=== PATIENT | male | born 1980 | race Caucasian/White ===

== ENCOUNTER 2017-07-21 17:43 | Inpatient (IN) | payer MEDICARE, MEDICAID ==
[2017-07-21 18:38] LABS: Amphetamine Screen,Urine Not Detected (NotDetected); Barbiturate Screen,Urine Not Detected (NotDetected); Benzodiazepines Screen,Urine Detected (NotDetected); Cocaine Screen,Urine Not Detected (NotDetected); Methadone Screen, Urine Not Detected (NotDetected); Opiate Screen,Urine Detected (NotDetected); Oxycodone Screen, Urine Not Detected (NotDetected); Phencyclidine Screen,Urine Not Detected (NotDetected); Tricyclic Antidepressant,Urine Not Detected (NotDetected); Urn Cannabinoid Scrn Detected (NotDetected)
--- NOTE | 2017-07-21 22:33 | ED ---
Psych HPI - General Chief Complaint: Psychiatric Symptoms Stated Complaint: MENTAL HEALTH Time Seen by Provider: 07/21/17 18:05 Source: patient, police Mode of arrival: ambulatory - History of Present Illness Initial Comments: This 37-year-old white male presents with a complaint of depression. He states that he feels as though his depression is related to his chronic pain syndrome and not receiving enough narcotics. He has had some suicidal ideations but does not feel as though he will actually go through with it. He denies any actual plan. He states that he has chronic neck pain and is had 2 neck surgeries. He states that he takes [place] but it is like taking Tylenol or Motrin and does not work for him. He states that he has tried to take some of his amphetamine medication for pain but it does not work for his pain. He denies any other complaints or modifying factors. He states that his symptoms are fairly severe and have some degree of chronicity. - Related Data Home Medications Medication Instructions Recorded Confirmed Dextroamphetamine/Amphetamine 20 mg PO QAM 05/15/16 07/21/17 [Adderall Xr] Dextroamphetamine/Amphetamine 30 mg PO BID 05/15/16 07/21/17 [Adderall] Diazepam [Valium] 10 mg PO BID PRN 05/15/16 07/21/17 Fluticasone Propionate [Flonase 1 spray EA NOSTRIL DAILY 05/15/16 07/21/17 Allergy Relief] HYDROcodone/APAP 10-325MG [[place] 1 tab PO TID PRN 05/15/16 07/21/17 10-325] Ibuprofen [Motrin] 800 mg PO TID PRN 05/15/16 07/21/17 Omeprazole 20 mg PO BID 05/15/16 07/21/17 Sildenafil Citrate [Sildenafil] 20 mg PO DAILY PRN 05/15/16 07/21/17 Albuterol Inhaler [Ventolin Hfa 2 puff INHALATION RT-Q6H PRN 07/21/17 07/21/17 Inhaler] Megestrol [Megace] 200 mg PO BID 07/21/17 07/21/17 Montelukast [Singulair] 10 mg PO DAILY 07/21/17 07/21/17 Ultram Unknown Dose 1 tab PO ONCE PRN 07/21/17 07/21/17 Allergies Allergy/AdvReac Type Severity Reaction Status Date / Time Iodinated Contrast- Oral and Allergy Unknown Verified 07/21/17 22:27 IV Dye [Iodinated Contrast Media - Oral and] Review of Systems ROS Statement: Those systems with pertinent positive or pertinent negative responses have been documented in the HPI. ROS Other: All systems not noted in ROS Statement are negative. Past Medical History Past Medical History: Asthma Additional Past Medical History / Comment(s): DDD ADD anxiety Asthma History of Any Multi-Drug Resistant Organisms: None Reported Additional Past Surgical History / Comment(s): neck, [facility] unit Past Psychological History: ADD/ADHD, Anxiety Smoking Status: Current every day smoker Past Alcohol Use History: Occasional Past Drug Use History: None Reported General Exam - General Exam Comments Initial Comments: GENERAL: The patient is well nourished and well hydrated. VITAL SIGNS: Heart rate, blood pressure, respiratory rate reviewed as recorded in nurse's notes. EYES: Pupils are round and reactive. Extraocular movements are intact. No conjunctival / lid redness or swelling. ENT: No external evidence of injury, swelling, or ecchymosis. Airway is patent. Throat is clear. NECK: Nontender. No swelling or evidence of injury. No subcutaneous emphysema. Trachea is midline. No thyroid mass. HEART: Regular rate and rhythm. Good peripheral pulses. LUNGS/CHEST: Breath sounds clear and equal bilaterally. No rales, rhonchi, or wheezes. No ecchymosis, subcutaneous emphysema, or tenderness. ABDOMEN: Abdomen soft without tenderness. No palpable masses or organomegaly. No peritoneal signs. No abdominal wall swelling or ecchymosis. EXTREMITIES: No extremity tenderness. Normal muscle tone and function. No thoracolumbar tenderness. NEUROLOGIC: Sensation is grossly intact. Cranial nerve exam reveals face is symmetrical, tongue is midline, speech is clear. SKIN: No abrasions or ecchymosis is noted. No induration or masses noted. PSYCHIATRIC: Alert and oriented. Appropriate behavior and judgment. Limitations: no limitations Course Vital Signs 07/21/17 17:47 Temperature 97.4 F L Pulse Rate 78 Respiratory 18 Rate Blood Pressure 158/87 O2 Sat by Pulse 100 Oximetry Medical Decision Making - Medical Decision Making The patient was seen and examined. All diagnostics were reviewed. His breath alcohol test is negative. Psychiatric did evaluate the patient and would like to admit him to the hospital. The patient voluntarily is admitted to the hospital for further psychiatric treatment. - Lab Data Lab Results 07/21/17 Range/Units 18:15 Urine Opiates Screen Detected H (NotDetected) Ur Oxycodone Screen Not Detected (NotDetected) Urine Methadone Screen Not Detected (NotDetected) Ur Propoxyphene Screen Not Detected (NotDetected) Ur Barbiturates Screen Not Detected (NotDetected) U Tricyclic Antidepress Not Detected (NotDetected) Ur Phencyclidine Scrn Not Detected (NotDetected) Ur Amphetamines Screen Not Detected (NotDetected) U Methamphetamines Scrn Not Detected (NotDetected) U Benzodiazepines Scrn Detected H (NotDetected) Urine Cocaine Screen Not Detected (NotDetected) U Marijuana (THC) Screen Detected H (NotDetected) Disposition Clinical Impression: Major depression, Chronic pain, Hypertension Disposition: ADMITTED IP TO THIS [facility] Condition: Fair Time of Disposition: 22:33 Decision Date: 07/21/17 Decision Time: 22:33
[2017-07-22] MEDS ORDERED: MAGNESIUM HYDROXIDE 2,400 MG/10 ML CUP PO PRN (00:18)
[2017-07-22] MEDS ORDERED: MAG HYDROX/AL HYDROX/SIMETH 30 ML CUP PO PRN (00:18)
[2017-07-22] MEDS ORDERED: LORazepam 1 MG TAB PO PRN (00:18)
[2017-07-22] MEDS ORDERED: ACETAMINOPHEN TAB 325 MG TAB PO PRN (00:18)
[2017-07-22] MEDS ORDERED: IBUPROFEN 800 MG TAB PO PRN (00:24)
[2017-07-22] MEDS ORDERED: HYDROcodone/APAP 10-325MG 1 EACH TAB PO PRN (00:24)
[2017-07-22 02:16] VITALS: BMI 21.1
[2017-07-22] MEDS ORDERED: FLUTICASONE 50MCG/SPRAY NASAL 16GM EA NOSTRIL SCH (09:00)
[2017-07-22] MEDS: NICOTINE 21MG/24HR PATCH TRANSDERM SCH (09:07)
[2017-07-22] MEDS: MONTELUKAST 10 MG TAB PO SCH (09:08)
[2017-07-22] MEDS: MEGESTROL 400 MG/10 ML CUP PO SCH ×2 (09:08→18:39)
[2017-07-22 09:10] LABS: Basophils # (A) 0.1 k/uL (0-0.2); Basophils % (A) 1 %; Eosinophils # (A) 0.3 k/uL (0-0.7); Eosinophils % (A) 4 %; HCT 43.7 % (39.0-53.0); Lymphocytes # (A) 2.7 k/uL (1.0-4.8); Lymphocytes % (A) 31 %; MCH 29.6 pg (25.0-35.0); MCHC 32.1 g/dL (31.0-37.0); MCV 92.1 fL (80.0-100.0); Mean Platelet Volume 6.9; Monocytes # (A) 0.4 k/uL (0-1.0); Monocytes % (A) 5 %; Neutrophils % (A) 58 %; Platelet Count 280 k/uL (150-450); RBC 4.75 m/uL (4.30-5.90); WBC 8.6 k/uL (3.8-10.6)
[2017-07-22] MEDS: OLANZapine 5 MG TAB PO SCH ×3 (12:21→21:31)
[2017-07-22] MEDS: HYDROcodone/APAP 5-325MG 1 EACH TAB PO SCH ×3 (12:21→21:30)
--- NOTE | 2017-07-22 12:48 | HP ---
HISTORY AND PHYSICAL IDENTIFYING DATA: Patient is a 37-year-old male, he resides with his parents. He presented to the emergency room for evaluation. CHIEF COMPLAINT: The patient was anxious and depressed. He has chronic pain issues. He has significant substance use problems. HISTORY OF PRESENTING ILLNESS: The patient was somewhat vague in regards to his history. His main focus is that he has chronic pain which he states relates to pain in his neck from 2 neck surgeries as well as some kind of bone disease that he was not able to provide specifics. He notes that he has been on multiple habit-forming medications. He says he has been taking some kind of opioid pain medications regularly. The best I am able to tell is that over the last several months he has had increasing use of pain medications. He indicates that he takes [place] 10 mg at least 3 times a day, though seemed to suggest that he takes more. In addition, he has been prescribed Valium 10 mg which he said he takes twice a day. He also made suggestions that he may take more of that. Further, he takes Adderall XR 20 mg in the morning and Adderall 30 mg twice a day. He says that he takes Adderall for ADHD, which he was diagnosed with as a child, although it is noteworthy that he says that he gets both sedated as well as slurred speech from his other medications and he feels that Adderall counteracts that. He says that he has had some contact with pain clinics including seeing Dr. Byrd, where again he could not provide the details. He notes that he has been sleeping poorly. He has anxiety. He says that he gets discouraged mainly because he can get enough pain medications to ease his pain. He is also unable to provide further history other than stating that at different times in the past he has been on many different psychotropic medications. He could not provide information as to what he may have been on, what indications there were and what treatment settings. He is admitted for further evaluation, substance use history as above. Patient's urine drug screen was positive for opioids, benzodiazepines and marijuana. The patient was vague about how much marijuana he uses, though seemed to indicate that he smokes at least once a day on a daily basis. PAST MEDICAL HISTORY AND REVIEW OF SYSTEMS: As per medical consultation. Patient describes primarily chronic pain. History of 2 cervical surgeries and a "bone disease." FAMILY AND SOCIAL HISTORY: Patient only provided limited information. He lives with his mother and father. He says he has 3 children, ages 10, 7 and 5. He currently is not employed. MENTAL STATUS EXAM: Patient gave fair eye contact. He was somewhat restless. He answered questions with brief responses. He tended to be somewhat repetitive. He had slurred speech. Affect was anxious. Mood reserved. He seemed moderately distressed. There was no indication of thought disorder. On cognitive exam, he was oriented x3 and alert. He did make an effort to answer formal cognitive questions beyond orientation. Insight and judgment were poor. ASSESSMENT: This 37-year-old male has significant polysubstance dependence issues. He apparently has been using increasing doses of opioid pain medications. He also is prescribed benzodiazepines, amphetamines, and uses marijuana as well. He has significant anxiety and depression issues, most likely relating to early acute substance withdrawal. Strengths include [employer]. Weakness includes his persistent use of abusive substances. DIAGNOSES: 1. Polysubstance dependence and acute withdrawal, opioid pain medications, marijuana, benzodiazepines, prescribed amphetamines. 2. Major depression, chronic and recurrent with acute exacerbation, severe, without psychotic features. 3. Chronic neck pain. 4. Rule out "bone disease.". RECOMMENDATIONS: Patient will be admitted for comprehensive medical psychiatric and psychosocial evaluation. Will engage the patient in individual and group therapeutic activities. I had an extensive discussion with the patient in regards to addressing his severe substance use issues. We talked about the need to move away from opioid pain medications for his chronic pain condition. Will make efforts to get further medic medical records in regards to treatment that he has had on a outpatient basis. I will start the patient on Zyprexa 5 mg 3 times a day. The aim is Zyprexa to help reduce physiologic stress response relating to early acute substance withdrawal. I will start the patient on Ativan 0.5 mg 3 times a day to replace Valium that he has been taking. I will prescribe it regularly in an effort to help reduce any focus he may have on feeling he needs to take p.r.n. medications. I will start the patient on hydrocodone 5 mg 1 tablet 3 times a day. I will start the patient on a regular dose again to help reduce his focus on medications. I will start the patient on Motrin 800 mg 3 times a day to address pain issues. We will make an effort to consult Dr. Byrd or obtain medical records for further information. We will get a PT consult given his complaint about problems he is having with ambulation. We will focus on stabilization and discharge planning. RANDY / SNIANN: [id number] /
[2017-07-22 13:27] LABS: ALT 25 U/L (21-72); AST 15 U/L (17-59); Albumin 3.5 g/dL (3.5-5.0); Alkaline Phosphatase 66 U/L (38-126); Anion Gap 10 mmol/L; Blood Urea Nitrogen 15 mg/dL (9-20); Calcium 9.1 mg/dL (8.4-10.2); Carbon Dioxide 24 mmol/L (22-30); Chloride 109 mmol/L (98-107); Glucose 87 mg/dL (74-99); Potassium 4.5 mmol/L (3.5-5.1); Sodium 143 mmol/L (137-145); Total Bilirubin 0.5 mg/dL (0.2-1.3); Total Protein 6.1 g/dL (6.3-8.2)
[2017-07-22] MEDS: ALBUTEROL INHALER 60 PUFF/8 GM INHALER INHALATION PRN ×2 (13:44→20:48)
[2017-07-22] MEDS: IBUPROFEN 800 MG TAB PO SCH ×2 (15:58→21:30)
[2017-07-22] MEDS: LORazepam 0.5 MG TAB PO SCH ×2 (15:59→21:31)
[2017-07-22] MEDS ORDERED: LORazepam 1 MG TAB PO SCH (16:00)
[2017-07-22 16:53] LABS: Hemoglobin A1C 5.6 % (4.0-6.0)
--- NOTE | 2017-07-22 20:54 | CONS ---
CONSULTATION DATE OF SERVICE: 07/22/2017 REASON FOR CONSULTATION: Medical management with history of asthma, chronic pain, gastroesophageal reflux disease, DJD. BRIEF HISTORY: Patient is a 37-year-old male patient with history of depression who was admitted to the psych floor for suicidal ideation. The patient claims that he is not getting enough narcotics and he has chronic pain and is insisting on getting his [place] increased. PAST MEDICAL HISTORY: Significant for history of asthma, history of anxiety and ADD. PAST SURGICAL HISTORY: Unremarkable. SOCIAL HISTORY: Patient smokes every day. No history of alcohol or drug abuse. MEDICATIONS: Patient is on: 1. Omeprazole 20 mg b.i.d. 2. Motrin 800 mg t.i.d. 3. Sildenafil 20 mg daily p.r.n. 4. Ventolin inhaler 2 puffs q.i.d. 5. Megace 200 mg b.i.d. 6. Singulair 10 mg daily. 7. Ultram 1 tablet daily p.r.n. ALLERGIC: TO IODINE, IODINATED CONTRAST. REVIEW OF SYSTEMS: Patient denies any fevers and chills. HEENT: No vision or hearing loss. RESPIRATORY SYSTEM: No shortness of breath or cough or chest congestion. Cardiovascular: No chest pain or palpitations. Abdomen/GI no nausea, vomiting, diarrhea. Genitourinary: No hematuria, dysuria. Extremities: No swelling or redness of extremities. Neurological system: No lightheadedness, dizziness, or headaches. Psychiatric: As per HPI. PHYSICAL EXAMINATION: Vital signs temperature 97.4, pulse 78, respiration 18, blood pressure 158/87, O2 saturation 100%. General physical exam: The patient is awake, alert, oriented x3. He is in no acute distress. HEENT atraumatic, normocephalic. Pupils equal and reactive to light. Extraocular movements intact. Buccal mucosa is fair. NECK: Supple. No goiter or lymphadenopathy. JVD is negative. No carotid bruit heard. Lungs are clear to auscultate. No rales, rhonchi, or wheezes. Heart is regular rate and rhythm without any murmurs or gallop rhythm. ABDOMEN: Soft, nontender, nondistended. Bowel sounds positive and no guarding or rigidity. EXTREMITIES: No edema, clubbing, cyanosis. Pulses are palpable. Neurological examination: Cranial nerves 2-12 grossly intact. No gross motor or sensory deficits. Skin: Patient has no ecchymosis or abrasions. Psychiatric: The patient has appropriate behavior and judgment. LABS: Urine drug screen is positive for opiates and benzodiazepines and marijuana. ASSESSMENT: 1. Polysubstance abuse. 2. Chronic pain. 3. Hypertension. 4. Asthma. 5. Major depression. PLAN: The patient is continued on current medications. The patient's blood pressure has been medications under control. We will leave pain control to psychiatric service. Will follow with you. I wish to appreciate you for this consultation. We will follow the patient with you. MMODL / IJN: [id number] /
[2017-07-23 03:08] LABS: Cholesterol 178 mg/dL (<200); HDL Cholesterol 46 mg/dL (40-60); LDL Cholesterol,Calculated 116 mg/dL (0-99); Triglycerides 81 mg/dL (<150)
[2017-07-23] MEDS: NICOTINE 21MG/24HR PATCH TRANSDERM SCH (08:16)
[2017-07-23] MEDS: LORazepam 0.5 MG TAB PO SCH ×3 (08:17→20:56)
[2017-07-23] MEDS: MONTELUKAST 10 MG TAB PO SCH (08:17)
[2017-07-23] MEDS: MEGESTROL 400 MG/10 ML CUP PO SCH ×2 (08:17→18:31)
[2017-07-23] MEDS: OLANZapine 5 MG TAB PO SCH ×2 (08:18→15:41)
[2017-07-23] MEDS: IBUPROFEN 800 MG TAB PO SCH ×3 (08:18→20:57)
[2017-07-23] MEDS: HYDROcodone/APAP 5-325MG 1 EACH TAB PO SCH ×3 (08:19→20:56)
[2017-07-23] MEDS: ALBUTEROL INHALER 60 PUFF/8 GM INHALER INHALATION PRN ×2 (09:20→21:51)
[2017-07-23] MEDS: FLUTICASONE 50MCG/SPRAY NASAL 16GM EA NOSTRIL PRN ×2 (15:46→21:40)
--- NOTE | 2017-07-23 16:01 | P.CNNES ---
History of Present Illness Consult date: 07/23/17 Requesting physician: Damaso Swann Reason for Consult: Pain management History of Present Illness: Patient is a 37-year-old male who is being evaluated by the neurology service on 07/23/2017 per the request of Dr. Swann for pain management. Patient was admitted to [facility] psychiatric unit for suicidal ideation. Patient states he is depressed because he is not getting enough narcotics for his chronic pain. Patient is known to my service. Patient was seen in the office and was discharged from our office due to behavioral problems as well as an inconsistent urine drug screen which was positive for cocaine. Patient does have a history of lumbar surgery and currently has a spinal cord stimulator in place. Patient states he has not had an adjustment on his spinal cord stimulator in approximately 4 years. Patient's urine drug screen was positive for opiates, benzodiazepines, and marijuana. Vital signs are stable. At the time of my evaluation, patient's resting comfortably in bed and appears to be in no acute distress. Review of Systems REVIEW OF SYSTEMS: Otherwise unremarkable and noncontributory. Past Medical History Past Medical History: Asthma Additional Past Medical History / Comment(s): DDD ADD anxiety Asthma History of Any Multi-Drug Resistant Organisms: None Reported Additional Past Surgical History / Comment(s): neck, [facility] Smoking Status: Current every day smoker Medications and Allergies Home Medications Medication Instructions Recorded Confirmed Type Dextroamphetamine/Amphetamine 20 mg PO QAM 05/15/16 07/21/17 History [Adderall Xr] Dextroamphetamine/Amphetamine 30 mg PO BID 05/15/16 07/21/17 History [Adderall] Diazepam [Valium] 10 mg PO BID PRN 05/15/16 07/21/17 History Fluticasone Propionate [Flonase 1 spray EA NOSTRIL DAILY 05/15/16 07/21/17 History Allergy Relief] HYDROcodone/APAP 10-325MG [[place] 1 tab PO TID PRN 05/15/16 07/21/17 History 10-325] Ibuprofen [Motrin] 800 mg PO TID PRN 05/15/16 07/21/17 History Omeprazole 20 mg PO BID 05/15/16 07/21/17 History Sildenafil Citrate [Sildenafil] 20 mg PO DAILY PRN 05/15/16 07/21/17 History Albuterol Inhaler [Ventolin Hfa 2 puff INHALATION RT-Q6H PRN 07/21/17 07/21/17 History Inhaler] Megestrol [Megace] 200 mg PO BID 07/21/17 07/21/17 History Montelukast [Singulair] 10 mg PO DAILY 07/21/17 07/21/17 History Ultram Unknown Dose 1 tab PO ONCE PRN 07/21/17 07/21/17 History Allergies Allergy/AdvReac Type Severity Reaction Status Date / Time Iodinated Contrast- Oral and Allergy Unknown Verified 07/21/17 22:27 IV Dye [Iodinated Contrast Media - Oral and] Physical Examination - Vital Signs Vital Signs: Vital Signs Temp Pulse Resp BP 07/23/17 06:32 98.9 F 60 16 98/57 07/22/17 21:33 71 18 106/64 07/22/17 16:01 98.6 F 60 18 117/67 PHYSICAL EXAM: GENERAL APPEARANCE: Patient is a well-developed, male who appears to be in no acute distress. HEENT: Normocephalic, atraumatic, no facial asymmetry is seen. Neck is supple with no masses felt. CARDIOVASCULAR: Regular rate and rhythm. ABDOMEN: Nontender, nondistended. EXTREMITIES: Show no edema or clubbing. NEUROLOGICAL EXAM: Patient is awake, alert, and oriented 3. Speech and language are normal. Strength is 4+/5 in left lower extremity and full in all other extremities. Sensory exam is diminished to left lower extremity. Bilateral lower extremity reflexes intact. No facial asymmetry on cranial nerve testing. No tremors or seizure-like activity noted. Results - Laboratory Findings CBC and BMP: 07/22/17 08:55 07/22/17 08:55 Abnormal Lab Findings: Abnormal Labs 07/21/17 07/22/17 07/22/17 18:15 08:55 08:55 Chloride 109 H AST 15 L Total Protein 6.1 L LDL Cholesterol, Calc 116 H Urine Opiates Screen Detected H U Benzodiazepines Scrn Detected H U Marijuana (THC) Screen Detected H Assessment and Plan Plan: Impression: 1. Chronic low back pain/spinal cord stimulator 2. Failed lumbar surgery 3. Left lower extremity sensory deficit 4. Polysubstance abuse 5. Hypertension 6. Major depression Recommendation: Patient has chronic low back pain with history of failed spinal surgery. Patient does have spinal cord stimulator in place. It is not clear whether the spinal cord stimulator is fully working at capacity. Patient has not had this checked in a few years. Patient does have left lower extremity radiculopathy. I will get a CT of the lumbar spine without contrast to evaluate any new findings. I would continue current pain management. Neurontin 300 mg 3 times a day could be considered for neuropathic pain. Patient needs to follow up with his neurologist, as he is no longer seen in my office, to have spinal cord stimulator checked by [employer] sales representative. Patient may also benefit from epidural treatment as an outpatient. I will continue to follow with you. Further recommendations to follow once CT of the lumbar spine is done. Thank you for allowing me to participate in the care of your patient. Feel free to call with any questions or concerns. I performed an examination of the patient and discussed the management with the RENEWALS MANAGER. I have reviewed the RENEWALS MANAGER notes and agree with the findings and plan of care.
--- NOTE | 2017-07-23 17:01 | CT ---
EXAMINATION TYPE: CT lumbar spine wo con DATE OF EXAM: 07/23/2017 4:40 PM COMPARISON: CT lumbar spine November 21, 2015 HISTORY: Low back pain with left leg numbness CT DLP: 988 mGycm Automated exposure control for dose reduction was used. Unenhanced CT of the lumbar spine was performed. Bone and soft tissue window settings are submitted as well as coronal and sagittal reconstructions. There are 5 lumbar type vertebra redemonstrated. There is persistent mild to moderate disc space narr owing L5-S1 level otherwise vertebral body heights and disc space heights are maintained. No acute fr acture or dislocation is seen. No significant spurring is noted. There is spinal stimulator device en tering spinal canal or thoracolumbar junction extending superiorly outside the [id number] similar to prior study. No large posterior disc herniations are seen on sagittal images. Review of axial images shows epidural or extradural extra medullary placement of stimulator in the po sterior epidural fat similar to prior. Axial images at T11-T12, T12-L1, L1-L2, L2-L3, L3-L4 and L4-L5 , and L5-S1 levels show no significant facet arthropathy, new disc herniations, or spinal canal effac ement/stenosis at any level. Cholecystectomy clips are noted. IMPRESSION: Stable mild to borderline moderate disc space narrowing lumbosacral junction otherwise unremarkable s tudy. No significant change from prior CT. No significant findings seen to account for patient's left -sided radiculopathy type symptoms.
--- NOTE | 2017-07-23 17:25 | P.PN ---
Subjective Progress Note Date: 07/23/17 Interval history: The patient seen in [facility] ,was on wheel chair ,drugs seeking for opium and adderrall ,lot of somatic c/o :was seen by neurologist: please refer to her report and recommendation He reports that he doesn't feel as well physically ,stated "I NEED HIGHER DOSE OF PAIN MEDICATION AND I HAVE TO GET MY ADDERRAL ,I DO LOOK RETARDED WITHOUT IT",no insight to his SA issue , reports low frustration and agitation as he is not on "VALIUM AND ADDERRALL", denies any SI or HI,reports feeling tired and sluggish ,no energy and has been eating more with Zyprexa Mental status exam: The patient is male appearing his stated age. He is dressed in own clothing He continues using W/C. Eye contact is intermittent. Speech is spontaneous ,. He reports his mood is still depressed he still has hopeless thoughts about his chronic pain He is endorsing no suicidal thoughts .Denies AH,VH Thought process is linear. He demonstrates no verbal or physical aggressiveness he demonstrates no abnormal involuntary movements. Plan: The patient will continue on his current psychotropic medication however we will change Zyprexa to 10 mg HS as mood stabilizer ,set boundaries on his drug seeking behavior,Neurology will follow. He is encouraged to continue complying with groups. Objective - Vital Signs Vital signs: Vital Signs Temp 98.9 F 07/23/17 06:32 Pulse 60 07/23/17 06:32 Resp 16 07/23/17 06:32 BP 98/57 07/23/17 06:32 Pulse Ox 97 07/21/17 22:55 - Labs CBC & Chem 7: 07/22/17 08:55 07/22/17 08:55 Labs: Abnormal Lab Results - Last 24 Hours (Table) 07/22/17 Range/Units 08:55 LDL Cholesterol, Calc 116 H (0-99) mg/dL
[2017-07-23] MEDS: OLANZapine 10 MG TAB PO SCH (20:56)
[2017-07-24] MEDS: NICOTINE 21MG/24HR PATCH TRANSDERM SCH (09:02)
[2017-07-24] MEDS: HYDROcodone/APAP 5-325MG 1 EACH TAB PO SCH ×3 (09:02→21:08)
[2017-07-24] MEDS: MEGESTROL 400 MG/10 ML CUP PO SCH ×2 (09:02→17:50)
[2017-07-24] MEDS: IBUPROFEN 800 MG TAB PO SCH ×3 (09:03→21:09)
[2017-07-24] MEDS: MONTELUKAST 10 MG TAB PO SCH (09:04)
[2017-07-24] MEDS: LORazepam 0.5 MG TAB PO SCH ×3 (09:04→21:09)
[2017-07-24] MEDS: FLUTICASONE 50MCG/SPRAY NASAL 16GM EA NOSTRIL PRN ×3 (09:05→18:48)
[2017-07-24] MEDS: ALBUTEROL INHALER 60 PUFF/8 GM INHALER INHALATION PRN ×3 (10:30→21:38)
--- NOTE | 2017-07-24 14:12 | P.PN ---
Progress Note - Text Progress Note Date: 07/24/17 Interval history: The patient seen in [facility] ,was on wheel chair ,drugs seeking for opium and adderrall ,lot of somatic c/o ,endorses poor sleep"I slept 2 hours last night",denies any hopeless feeling ,denies any SI or HI , denies any psychotic features Discussed with him result of lumber CT ,patient stated that he used to be on Neurontin 800 mg TID ,Valium ,opium pain medication and Adderall Mental status exam: The patient is male appearing his stated age. He is dressed in own clothing He continues using W/C. Eye contact is intermittent. Speech is spontaneous ,. He reports his mood is still depressed because of his chronic pain He is endorsing no suicidal thoughts .Denies AH,VH Thought process is linear. He demonstrates no verbal or physical aggressiveness he demonstrates no abnormal involuntary movements. Plan: The patient will continue on his current psychotropic medication ,will add Neurontin 300 mg TID and will titrate it depend on tolerance,set boundaries on his drug seeking behavior,Neurology will follow. He is encouraged to continue complying with groups.
--- NOTE | 2017-07-24 15:22 | P.PN ---
Subjective Progress Note Date: 07/24/17 Patient is a 37-year-old male is being followed by the neurology service for pain management. Patient was admitted to [facility] psychiatric unit for suicidal ideation. Patient does have history of lumbar surgery and currently has a spinal cord stimulator in place. It is not clear the last time patient had a spinal cord stimulator adjustment. Patient continues to complain of low back pain radiating down the left leg. Patient does describe left leg pain as more of a numbness than pain. At the time of my evaluation, patient is resting comfortably in bed and appears to be in no acute distress. Objective - Vital Signs Vital signs: Vital Signs Temp 99.0 F 07/24/17 07:03 Pulse 74 07/24/17 07:03 Resp 12 07/24/17 07:03 BP 128/75 07/24/17 07:03 Pulse Ox 97 07/21/17 22:55 Intake & Output 07/23/17 07/24/17 07/24/17 18:59 06:59 18:59 Weight 65.4 kg - Exam PHYSICAL EXAM: GENERAL APPEARANCE: Patient is a well-developed, male who appears to be in no acute distress. HEENT: Normocephalic, atraumatic, no facial asymmetry is seen. Neck is supple with no masses felt. CARDIOVASCULAR: Regular rate and rhythm. ABDOMEN: Nontender, nondistended. EXTREMITIES: Show no edema or clubbing. NEUROLOGICAL EXAM: Patient is awake, alert, and oriented 3. Speech and language are normal. Strength is 5-/5 to left lower extremity and full in all other extremities. Sensory exam diminished to light touch in left lower extremity. No facial asymmetry is seen on cranial nerve testing. No tremors or seizures noted. - Labs CBC & Chem 7: 07/22/17 08:55 07/22/17 08:55 Assessment and Plan Plan: Impression: 1. Chronic low back pain/spinal cord stimulator 2. Failed lumbar surgery 3. Left lower extremity sensory deficit 4. Polysubstance abuse 5. Hypertension 6. Major depression Recommendation: Patient has chronic low back pain with history of failed spinal surgery. Patient does have spinal cord stimulator in place but it is not clear if this is working to capacity. CT of the lumbar spine did not show any new findings. I would continue current pain management. Neurontin 300 mg 3 times a day could be considered for neuropathic pain. Patient needs to follow up with his neurologist, as he is no longer seen in my office, to have spinal cord stimulator checked by [employer] sales representative. Patient may also benefit from epidural treatment as an outpatient. I will continue to follow with you on an as-needed basis. Feel free to call with any questions or concerns I performed an examination of the patient and discussed the management with the MECHANIST. I have reviewed the MECHANIST notes and agree with the findings and plan of care.
[2017-07-24] MEDS: GABAPENTIN 300 MG CAP PO SCH ×2 (15:35→21:08)
[2017-07-24] MEDS: OLANZapine 10 MG TAB PO SCH (21:08)
[2017-07-25] MEDS: MEGESTROL 400 MG/10 ML CUP PO SCH ×2 (09:09→16:26)
[2017-07-25] MEDS: LORazepam 0.5 MG TAB PO SCH ×2 (09:10→21:03)
[2017-07-25] MEDS: MONTELUKAST 10 MG TAB PO SCH (09:10)
[2017-07-25] MEDS: PANTOPRAZOLE 40 MG TABLET PO SCH (09:10)
[2017-07-25] MEDS: GABAPENTIN 300 MG CAP PO SCH ×3 (09:10→21:03)
[2017-07-25] MEDS: IBUPROFEN 800 MG TAB PO SCH ×3 (09:10→21:03)
[2017-07-25] MEDS: HYDROcodone/APAP 5-325MG 1 EACH TAB PO SCH ×3 (09:11→21:04)
[2017-07-25] MEDS: FLUTICASONE 50MCG/SPRAY NASAL 16GM EA NOSTRIL PRN ×3 (09:12→21:06)
[2017-07-25] MEDS: NICOTINE 21MG/24HR PATCH TRANSDERM SCH (09:12)
[2017-07-25] MEDS: ALBUTEROL INHALER 60 PUFF/8 GM INHALER INHALATION PRN ×2 (09:22→22:11)
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
[2017-07-25] MEDS: OLANZapine 10 MG TAB PO SCH (21:03)
[2017-07-26 06:52] VITALS: BP 118/73; PULSE 67; RESP 14; TEMP 98.8
[2017-07-26] MEDS: NICOTINE 21MG/24HR PATCH TRANSDERM SCH (08:28)
[2017-07-26] MEDS: MEGESTROL 400 MG/10 ML CUP PO SCH ×2 (08:28→18:35)
[2017-07-26] MEDS: MONTELUKAST 10 MG TAB PO SCH (08:29)
[2017-07-26] MEDS: LORazepam 0.5 MG TAB PO SCH ×2 (08:29→20:07)
[2017-07-26] MEDS: PANTOPRAZOLE 40 MG TABLET PO SCH (08:29)
[2017-07-26] MEDS: HYDROcodone/APAP 5-325MG 1 EACH TAB PO SCH ×3 (08:29→21:12)
[2017-07-26] MEDS: GABAPENTIN 300 MG CAP PO SCH ×3 (08:29→20:06)
[2017-07-26] MEDS: IBUPROFEN 800 MG TAB PO SCH ×3 (08:30→20:05)
[2017-07-26] MEDS: VENLAFAXINE HCL ER 37.5 MG CAP PO SCH (08:30)
[2017-07-26] MEDS: FLUTICASONE 50MCG/SPRAY NASAL 16GM EA NOSTRIL PRN ×4 (08:32→21:13)
[2017-07-26] MEDS: ALBUTEROL INHALER 60 PUFF/8 GM INHALER INHALATION PRN ×2 (08:50→18:34)
--- NOTE | 2017-07-26 13:13 | P.PN ---
Progress Note - Text Progress Note Date: 07/26/17 Interval History: Patient is a 37-year-old male who was seen today, he continues to use a wheelchair. Patient states that he is feeling much better today feels that the Neurontin has been helpful, he also feels that the Effexor is helped and states that he feels more alert and awake today. He reports that he slept well last evening. Patient states that he is not feeling depressed and is not having any suicidal thoughts. Patient reports no side effects from the medication and I reviewed again the reason that his Ativan a been decreased as we are doing a taper off of benzodiazepines. Patient had been taking Valium on the outside. Mental Status: Appearance/Attitude: Patient is sitting in a wheelchair, states that he is much more comfortable today, makes good eye contact and is cooperative. Behavior: Patient does not exhibit any psychomotor agitation or retardation. Speech/Language: Patient's speech is spontaneous and of normal volume and rhythm and he is coherent. Thought Process: Patient is goal-directed there is no evidence of loose associations or flight of ideas. Thought Content: Patient denies any auditory or visual hallucinations and no delusions or paranoid ideation were elicited. Patient reports that his pain has improved with the Neurontin as well as he feels more alert and awake this morning. Patient states that he is sleeping well at night. Patient states that he felt slightly anxious yesterday, on the lower dose of Ativan but is doing well so far today. He reports his appetite is good. Suicidal/Homicidal Ideation: patient denied any current suicidal or homicidal ideation. Sensorium/Cognition: patient is alert and oriented to person, place, time and his recent and remote memory are grossly intact. Mood/Affect: Patient's mood is pleasant and his affect is appropriate Insight/Judgment: patient's insight and judgment are fair Assessment: patient reports that he has adjusted to the lower dose of Ativan and states that he was uncertain about it yesterday. He reports that the Effexor this morning has helped him feel more awake and brighter. He also reports that the Neurontin has been beneficial for his pain. He is sleeping well at night with the Zyprexa. Patient reports no side effects from his medication. Patient has continued to use Xenia 3 times a day in the hospital which is what he was using as an outpatient. Plan: patient will continue on the Ativan at 0.5 mg twice a day, Effexor 37.5 mg extended release in the morning to target his depression and Zyprexa 10 mg at bedtime to augment the antidepressant. Patient and I discussed continuing the taper of Ativan. Patient and I also discussed not restarting benzodiazepines again once he has been discharged. Patient and I discussed discharge for this and he was agreeable with this plan.
[2017-07-26] MEDS: OLANZapine 10 MG TAB PO SCH (20:06)
[2017-07-27] MEDS: NICOTINE 21MG/24HR PATCH TRANSDERM SCH (08:20)
[2017-07-27] MEDS: GABAPENTIN 300 MG CAP PO SCH ×2 (08:21→12:00)
[2017-07-27] MEDS: MONTELUKAST 10 MG TAB PO SCH (08:21)
[2017-07-27] MEDS: VENLAFAXINE HCL ER 37.5 MG CAP PO SCH (08:21)
[2017-07-27] MEDS: PANTOPRAZOLE 40 MG TABLET PO SCH (08:21)
[2017-07-27] MEDS: LORazepam 0.5 MG TAB PO SCH (08:21)
[2017-07-27] MEDS: MEGESTROL 400 MG/10 ML CUP PO SCH (08:21)
[2017-07-27] MEDS: IBUPROFEN 800 MG TAB PO SCH ×2 (08:22→12:00)
[2017-07-27] MEDS: HYDROcodone/APAP 5-325MG 1 EACH TAB PO SCH (08:22)
[2017-07-27] MEDS: FLUTICASONE 50MCG/SPRAY NASAL 16GM EA NOSTRIL PRN (08:23)
--- NOTE | 2017-07-27 09:38 | P.DS ---
Providers Date of admission: 07/21/17 22:13 Expected date of discharge: 07/27/17 Attending physician: Susan Oseguera MD Consults: 07/22/17 00:18 Consult Physician Routine Consulting Provider: Vishal Medina Consult Reason/Comments: medical management Do you want consulting provider notified?: Already Contacted 07/22/17 10:49 Consult Physician Routine Consulting Provider: Deepa Byrd Consult Reason/Comments: Pain Management Do you want consulting provider notified?: Yes Primary care physician: [facility] Course: Discharge Diagnosis: Substance-induced depressive disorder, prescribed opioid, benzodiazepine and amphetamine Reason for Admission: Patient is a 37-year-old male who presented for evaluation at the emergency room reporting that he was anxious and depressed. He reported that he had chronic pain issues as well. Patient on admission was vague regarding his history regarding his pain, reporting that he had 2 neck surgeries. Patient has been prescribed opioid medications and he reported on admission that he had been increasing the use of these. Patient was using Downs tends at a minimum of 3 times a day. He was also prescribed Valium 10 mg a day which she was using twice a day. And he was also prescribed Adderall XR 20 in the morning and Adderall immediate release 30 mg twice a day for his ADHD which she stated he was treated for as a child with Ritalin. Patient has been seen in pain clinics in the past and it is unclear what ended this relationship. Patient reported poor sleep and anxiety and stated that his pain medications are not sufficient to control his pain. Patient was reporting feeling depressed, on admission he had slightly slurred speech. Patient was felt to be having some early withdrawal symptoms from his medications on admission. Hospital Course: Patient was admitted on a voluntary basis, routine laboratory studies and medical consultation were obtained the patient was placed on routine observation and group and activity therapy were also ordered. Patient was placed on Ativan 0.5 mg 3 times a day to safely withdraw him off Valium. He was not continued on his Adderall and his Downs was reduced to 5 mg 3 times a day as needed for pain. Patient was also begun on Zyprexa 5 mg 3 times a day initially which was changed to 10 mg at bedtime. A neurology consult was also obtained with a recommendation of beginning Neurontin 300 mg 3 times a day. Patient was using a wheelchair to ambulate due to his unsteady gait, reported continued feeling of depression and anxiety. Patient was begun on Effexor 37.5 mg extended release in the morning to target his depression and anxiety and the patient reported that his mood had brightened and he was much more alert during the day. Patient's Ativan was tapered to 2.5 mg twice a day and the patient was tolerating the decrease well. Patient reported he was no longer feeling depressed, was sleeping well and no longer felt as though he was in withdrawal, he reported a good appetite and no was no longer feeling overwhelmed. Patient reported good results with the Neurontin in controlling his pain, although patient continued on 800 mg Motrin 3 times a day as well as Downs 10s 3 times a day. Patient declined any referrals for rehab. Patient reported no side effects from his medication and felt he was ready for discharge. Patient also had a computed tomography scan of this buying which revealed no changes from prior scan. Patient also has an implanted stimulator which has not been evaluated since 2002 and was not used while on the inpatient unit. Patient was also continued on his inhalers as well as Protonix. Allergies Iodinated Contrast- Oral and IV Dye [Iodinated Contrast Media - Oral and] Allergy (Verified 07/21/17 22:27) Unknown Laboratory Last Values WBC 8.6 k/uL (3.8-10.6) 07/22/17 08:55 RBC 4.75 m/uL (4.30-5.90) 07/22/17 08:55 Hgb 14.0 gm/dL (13.0-17.5) 07/22/17 08:55 Hct 43.7 % (39.0-53.0) 07/22/17 08:55 MCV 92.1 fL (80.0-100.0) 07/22/17 08:55 MCH 29.6 pg (25.0-35.0) 07/22/17 08:55 MCHC 32.1 g/dL (31.0-37.0) 07/22/17 08:55 RDW 13.0 % (11.5-15.5) 07/22/17 08:55 Plt Count 280 k/uL (150-450) 07/22/17 08:55 Neutrophils % 58 % 07/22/17 08:55 Lymphocytes % 31 % 07/22/17 08:55 Monocytes % 5 % 02/23/18 08:55 Eosinophils % 4 % 07/22/17 08:55 Basophils % 1 % 07/22/17 08:55 Neutrophils # 5.0 k/uL (1.3-7.7) 07/22/17 08:55 Lymphocytes # 2.7 k/uL (1.0-4.8) 07/22/17 08:55 Monocytes # 0.4 k/uL (0-1.0) 07/22/17 08:55 Eosinophils # 0.3 k/uL (0-0.7) 07/22/17 08:55 Basophils # 0.1 k/uL (0-0.2) 07/22/17 08:55 Sodium 143 mmol/L (137-145) 07/22/17 08:55 Potassium 4.5 mmol/L (3.5-5.1) 07/22/17 08:55 Chloride 109 mmol/L (98-107) H 07/22/17 08:55 Carbon Dioxide 24 mmol/L (22-30) 07/22/17 08:55 Anion Gap 10 mmol/L 07/22/17 08:55 BUN 15 mg/dL (9-20) 07/22/17 08:55 Creatinine 0.90 mg/dL (0.66-1.25) 07/22/17 08:55 Est GFR (MDRD) Af Amer >60 (>60 ml/min/1.73 sqM) 07/22/17 08:55 Est GFR (MDRD) Non-Af >60 (>60 ml/min/1.73 sqM) 07/22/17 08:55 Glucose 87 mg/dL (74-99) 07/22/17 08:[address] Glu mg/dL 114 07/22/17 08:55 Hemoglobin A1c 5.6 % (4.0-6.0) 07/22/17 08:55 Calcium 9.1 mg/dL (8.4-10.2) 07/22/17 08:55 Total Bilirubin 0.5 mg/dL (0.2-1.3) 07/22/17 08:55 AST 15 U/L (17-59) L 07/22/17 08:55 ALT 25 U/L (21-72) 07/22/17 08:55 Alkaline Phosphatase 66 U/L (38-126) 07/22/17 08:55 Total Protein 6.1 g/dL (6.3-8.2) L 07/22/17 08:55 Albumin 3.5 g/dL (3.5-5.0) 07/22/17 08:55 Triglycerides 81 mg/dL (<150) 07/22/17 08:55 Cholesterol 178 mg/dL (<200) 07/22/17 08:55 LDL Cholesterol, Calc 116 mg/dL (0-99) H 07/22/17 08:55 HDL Cholesterol 46 mg/dL (40-60) 07/22/17 08:55 TSH 0.639 mIU/L (0.465-4.680) 07/22/17 08:55 Urine Opiates Screen Detected (NotDetected) H 07/21/17 18:15 Ur Oxycodone Screen Not Detected (NotDetected) 07/21/17 18:15 Urine Methadone Screen Not Detected (NotDetected) 07/21/17 18:15 Ur Propoxyphene Screen Not Detected (NotDetected) 07/21/17 18:15 Ur Barbiturates Screen Not Detected (NotDetected) 07/21/17 18:15 U Tricyclic Antidepress Not Detected (NotDetected) 07/21/17 18:15 Ur Phencyclidine Scrn Not Detected (NotDetected) 07/21/17 18:15 Ur Amphetamines Screen Not Detected (NotDetected) 07/21/17 18:15 U Methamphetamines Scrn Not Detected (NotDetected) 07/21/17 18:15 U Benzodiazepines Scrn Detected (NotDetected) H 07/21/17 18:15 Urine Cocaine Screen Not Detected (NotDetected) 07/21/17 18:15 U Marijuana (THC) Screen Detected (NotDetected) H 07/21/17 18:15 Discharge Mental Status: [Appearance/Attitude: [Patient was appropriately dressed, using a wheelchair, made good eye contact and was cooperative. Behavior: Patient did not display any psychomotor agitation or retardation. Speech/Language: Patient's speech was spontaneous and of normal volume and rhythm and he was coherent Thought Process: Patient was goal-directed, is no evidence of loose associations or flight of ideas. Thought Content: Patient denied any auditory or visual hallucinations and no paranoid or delusional ideation was elicited. Patient reported that he was no longer feeling overwhelmed, his pain was much better controlled and he was no longer feeling as anxious. Patient states he was sleeping well and his appetite was good. Suicidal/Homicidal Ideation: Patient denied any current suicidal or homicidal ideation Sensorium/Cognition: Patient was alert and oriented to person, place, and time and his recent and remote memory were grossly intact. Mood/Affect: Patient's mood was pleasant and his affect was appropriate Insight/Judgment: Patient's insight and judgment are fair. Risk Assessment: Patient's risk for self-harm is moderate secondary to his history of polysubstance use Discharge Plan: Patient will return home, patient will not restart his Adderall , he denied a long discussion regarding his dosage of Adderall I suggested that he try not restarting his Adderall once he returns home. Patient will continue on Effexor 37.5 mg extended release in the morning, Neurontin 300 mg 3 times a day, Zyprexa 10 mg at bedtime and will continue on an Ativan taper of 0.5 mg twice a day for 2 days and then Ativan 0.5 mg once a day for 5 days patient will be given a prescription for these medications, patient will discuss with his primary care physician what dosage of Downs he will start as the patient has been using Downs 5 in the hospital he will also discuss continuing Motrin with him. Patient will follow up with outpatient counseling at [place] where he has been seen.. Patient was advised to avoid overuse of his pain medication and avoid any alcohol or other drugs. Patient was also given a prescription for nicotine patches as he wishes to stop smoking. Patient Condition at Discharge: Stable Plan - Discharge Summary Discharge Rx Participant: No New Discharge Prescriptions: New Gabapentin [Neurontin] 300 mg PO 0700,1300,2000 #42 cap HYDROcodone/APAP 5-325MG [Downs 5-325] 1 each PO TID tab LORazepam [Ativan] 0.5 mg PO BID #10 tab OLANZapine [ZyPREXA] 10 mg PO HS #14 tab Venlafaxine HCl ER [Effexor XR] 37.5 mg PO DAILY #14 cap.er.24h Nicotine 21Mg/24Hr Patch [Habitrol] 1 patch TRANSDERM DAILY #28 patch Continue Ibuprofen [Motrin] 800 mg PO TID PRN PRN Reason: Pain Fluticasone Propionate [Flonase Allergy Relief] 1 spray EA NOSTRIL DAILY Sildenafil Citrate [Sildenafil] 20 mg PO DAILY PRN PRN Reason: Per Protocol Omeprazole 20 mg PO BID Montelukast [Singulair] 10 mg PO DAILY Megestrol [Megace] 200 mg PO BID Albuterol Inhaler [Ventolin Hfa Inhaler] 2 puff INHALATION RT-Q6H PRN PRN Reason: Shortness Of Breath Discontinued HYDROcodone/APAP 10-325MG [Downs 10-325] 1 tab PO TID PRN PRN Reason: Pain Dextroamphetamine/Amphetamine [Adderall] 30 mg PO BID Dextroamphetamine/Amphetamine [Adderall Xr] 20 mg PO QAM Diazepam [Valium] 10 mg PO BID PRN PRN Reason: Anxiety Ultram Unknown Dose 1 tab PO ONCE PRN PRN Reason: Pain Discharge Medication List Fluticasone Propionate [Flonase Allergy Relief] 1 spray EA NOSTRIL DAILY [History] Ibuprofen [Motrin] 800 mg PO TID PRN 05/15/16 [History] Omeprazole 20 mg PO BID 05/15/16 [History] Sildenafil Citrate [Sildenafil] 20 mg PO DAILY PRN 05/15/16 [History] Albuterol Inhaler [Ventolin Hfa Inhaler] 2 puff INHALATION RT-Q6H PRN 07/21/17 [ History] Megestrol [Megace] 200 mg PO BID 07/21/17 [History] Montelukast [Singulair] 10 mg PO DAILY 07/21/17 [History] Gabapentin [Neurontin] 300 mg PO 0700,1300,1999 #42 cap 07/27/17 [Rx] HYDROcodone/APAP 5-325MG [Downs 5-325] 1 each PO TID tab 07/27/17 [Rx] LORazepam [Ativan] 0.5 mg PO BID #10 tab 07/27/17 [Rx] Nicotine 21Mg/24Hr Patch [Habitrol] 1 patch TRANSDERM DAILY #28 patch 07/27/17 [ Rx] OLANZapine [ZyPREXA] 10 mg PO HS #14 tab 07/27/17 [Rx] Venlafaxine HCl ER [Effexor XR] 37.5 mg PO DAILY #14 cap.er.24h 07/27/17 [Rx] Follow up Appointment(s)/Referral(s): [facility]Other] - 07/28/17 12:15 pm (If unable to make the intake please call prior to appointment or $30.00 will be charged to credit card. ) Yamil Fenton MD [Primary Care Provider] - 1 Week (Pt is to follow up with medical doctor on Tuesday07-29-17 at 10:00 am with Pen[facility] ) Deepa Byrd MD [STAFF PHYSICIAN] - 1 Week (Call the number provided to set up apt. ) Patient Instructions/Handouts: How to Stop Smoking (DC), Depression (DC), Suicide Prevention for Adults (DC) Activity/Diet/Wound Care/Special Instructions: Pt. is to contact Dr. Dove's office and inquire if they will take him back as a pt. and also to obtain a copy of the card with phone number for the tech to help him recharge the batteries in his implanted back/pain relief stimulator ; Pt. is to follow-up with a neurologist, as it's possible that he has L hip bursitis that's causing pain in his L hip. No alcohol or street drugs, activity as tolerated, diet as tolerated, remove firearms from home. Call 911 or crisis line if having thoughts to hurt himself or anyone else. Follow up with outpatient provider as set up at time of discharge. Call [facility] to help get your pain stimulator recharged and restarted, they will set up a time to meet at Dr. Byrd's office.
[2017-07-27] MEDS: ALBUTEROL INHALER 60 PUFF/8 GM INHALER INHALATION PRN (09:45)
== END 2017-07-27 13:32 | disposition home or self-care (01) | DRG 885 ==
LOC: EC 17:43 → 3MHU 22:13
PROVIDERS: ADMIT Psychiatry & Neurology Psychiatry; ATTEND Psychiatry & Neurology Psychiatry
DX: F33.2 Major depressive disorder, recurrent severe without psychotic features (principal); F15.20 Other stimulant dependence, uncomplicated; R45.851 Suicidal ideations; F19.239 Other psychoactive substance dependence with withdrawal, unspecified; F12.90 Cannabis use, unspecified, uncomplicated; F17.200 Nicotine dependence, unspecified, uncomplicated; F41.9 Anxiety disorder, unspecified; F90.9 Attention-deficit hyperactivity disorder, unspecified type; G89.4 Chronic pain syndrome; I10 Essential (primary) hypertension; J45.909 Unspecified asthma, uncomplicated; K21.9 Gastro-esophageal reflux disease without esophagitis; M19.90 Unspecified osteoarthritis, unspecified site; M54.2 Cervicalgia; M54.5 Low back pain; R45.1 Restlessness and agitation; Z76.5 Malingerer [conscious simulation]; Z79.899 Other long term (current) drug therapy; Z91.041 Radiographic dye allergy status
CPT/HCPCS: 72131; 80053; 80061; 80306; 82075; 83036; 84443; 85025; 94640; 99285

== ENCOUNTER → 2021-09-28 | Outpatient (CLI) | payer MEDICARE, OTHER ==
[2021-09-28 12:30] VITALS: BP 142/88; PULSE 63; RESP 18
--- NOTE | 2021-09-28 12:55 | P.CON ---
Consult Note - . Consult date: 09/28/21 Assessment/Plan:: HISTORY OF PRESENT ILLNESS: 41 yr old male as a referral from Dr Fenton presents today with chronic & severe LBP secondary to DDD, thoracolumbar scoliosis, facet arthroapthy and disc herniations for evaluation. She states pain originates in the middle and upper aspect of his right: Lumbar spine, 6 out of 10 in intensity, sharp pain that radiates up the thoracic spine and down the tailbone. Denies radiation of pain I the midline. Pain elevates as high as 10 out of 10 with bending, twisting and lifting. Pain is relieved with medications (Tylenol OTC), injections, physical therapy in August 2020, massage therapy integrated with PT, chiropractic treatments in the past and provided no relief, daily home stretching regimen, use of a thoracolumbar support brace, +cannabis use, epsom salt baths and rest. PMH: Asthma, OA, GERD, Pancreatitis, PSH: ESIs (from Dr Byrd's office), Neurostimulator implant in 2014, Cervical fusion, Cholecystectomy, R wrist hardware placement SH: Tobacco Use. Hx of substance abuse disorder. +Cannabis use. Lives with father. FH: Non contributory. All: See list Meds: See list REVIEW OF ORGAN SYSTEMS: CONSTITUTIONAL: No fevers or chills. No recent weight loss. HEENT: No visual acuity loss, eye pain, difficulties with hearing. No nosebleeds. No difficulty swallowing. RESPIRATORY: Denies any troubles with breathing or dyspnea on exertion. CARDIOVASCULAR: Denies any chest pain, palpitations, or recent heart attacks. GASTROINTESTINAL: Denies fatty food intolerance. Has change in bowel habits and gas bloat. GENITOURINARY: Denies any blood in urine. Has increased urinary frequency. NEUROLOGICAL: + numbness and tingling along the distal extremities. No seizure disorders or headaches. MUSCULOSKELETAL: + back pain SKIN: No skin cancer. No rash. PSYCHIATRIC: Denies current depression or suicidal thoughts. ENDOCRINE: Denies current thyroid disorders. Denies any blood sugar glucose intolerance. HEME/LYMPHATIC: Denies any lumps and bumps around the neck. History of deep venous thrombosis. ALLERGY/IMMUNOLOGY: No immunoglobulin therapy. No immune deficiencies. BREAST: Denies current breast lumps, pain or nipple discharge. Physical Examinations : Constitutional : Cooperative , not in acute distress . HEENT: Neck supple. No Lymphadenopathy. Normal thyroid size . Eyes no ptosis , no icterus, no photophobia . Hearing intact. Normal oropharynx. No Thrush. Respiratory : Chest clear to auscultations bilaterally. No wheezing. No rhonchi. Cardiovascular : Regular rate and rhythm , S1 / S2. No S3 . No S4. Gastrointestinal : Abdomen soft. No tenderness. Bowel sounds x 4. No organomegaly . Genitourinary : Deferred. Neurologic : Cranial nerve II to XII intact. No focal neurological deficits. Psychiatric : alert & oriented x 3. Matching mood & appropriate affect. Judgment & insight intact. Lymphatic No Lymphadenopathy. Musculoskeletal : Cervical Spine Motor strength in the deltoid and biceps: Normal right side. Normal Left side Motor strength biceps and the wrist extensors: Normal right side . Normal left side Motor strength in the triceps muscle: Normal right side. Normal left side Deep tendon reflexes: Normal at the biceps. Normal at Brachioradialis. Normal at triceps Cervical facet loading test: positive bilaterally Spurling test: positive bilaterally Neck distraction test: positive bilaterally Ryan sign: positive bilaterally Thoracic spine Vertebral body TTP over T11, T12 Lumbar spine Motor strength lower extremities ,thigh and legs 5/5 Right side , 5/5 Left side Deep tendon reflexes : Normal Knee Jerk. Normal Ankle Jerk Vertebral body tenderness over Lumbar facet Loading Test: positive Right / positive Left Range of motion of the lumbar spine Flexion 30 degrees, extension 10 degrees Straight Leg Raise test: Left/ Right positive at degree Karely test: positive right / positive left. Severe tenderness over the Sacroiliac joint on the Right / Left sides Gaenslen test: positive bilaterally Seated flexion test: positive bilaterally. Imaging: CT scan without contrast of the Lumbar spine from 07/23/17 reviewed MRI without contrast of the Lumbar spine from 03/30/12 reviewed Assessment/ Plan : Thoracolumbar scoliosis Recommendatin of EDDY T11-T12. May need a series of injections, up to 3 within a 6 mo period, for optimal pain relief. Risks, benefits of procedure discussed and patient verbalized understanding. Denies aspirin or anti- coagulant use. Denies medical history of diabetes. All questions answered. I have spent greater than 50 minutes on patient care today. Dr Jacobson was available by phone for the evaluation of this patient. The time was used to review the medical records including relevant urine studies and Prescription history (MAPs), review of the available imaging, evaluation and examination of the patient, coordination of care with the medical staff and if applicable referring physicians, as well as creation of the medical record PQRS Measure Charge Sheet Mode of Arrival: Ambulatory - Pain Location Back Non-Pharmacological Interventions: Chiropractic Treatment, Home Exercise, Inactivity, Massage, Physical Therapy, Position/Reposition, Relaxation Technique, Stretching Pharmacological Interventions: PRN Medication PQRS Narrative: Smoking Status Current every day smoker Blood Pressure 142/88 Pain Intensity [Back] 6 Scale Used Numeric (1 - 10) Hx Alcohol Use (MH) No Home Medications: Ambulatory Orders Fluticasone Propionate [Flonase Allergy Relief] 1 spray EA NOSTRIL DAILY 05/15/16 Ibuprofen [Motrin] 800 mg PO TID PRN 05/15/16 Omeprazole 20 mg PO BID 05/15/16 Sildenafil Citrate 20 mg PO DAILY PRN 05/15/16 Albuterol Inhaler (Mhu) [Ventolin Hfa Inhaler (Mhu)] 2 puff INHALATION RT-Q6H OK N 07/21/17 Megestrol [Megace] 200 mg PO BID 07/21/17 Montelukast [Singulair] 10 mg PO DAILY 07/21/17 Gabapentin [Neurontin] 300 mg PO 0700,1300,2000 #42 cap 07/27/17 HYDROcodone/APAP 5-325MG [[place] 5-325] 1 each PO TID tab 07/27/17 LORazepam [Ativan] 0.5 mg PO BID #10 tab 07/27/17 Nicotine 21Mg/24Hr Patch [Habitrol] 1 patch TRANSDERM DAILY #28 patch 07/27/17 OLANZapine [ZyPREXA] 10 mg PO HS #14 tab 07/27/17 Venlafaxine HCl ER [Effexor XR] 37.5 mg PO DAILY #14 cap.er.24h 07/27/17
== END ==
LOC: PNWHC3 11:52
PROVIDERS: ATTEND Specialist
DX: M41.85 Other forms of scoliosis, thoracolumbar region (principal); M51.34 Other intervertebral disc degeneration, thoracic region; G89.29 Other chronic pain; J45.909 Unspecified asthma, uncomplicated; M19.90 Unspecified osteoarthritis, unspecified site; F17.200 Nicotine dependence, unspecified, uncomplicated; Z91.041 Radiographic dye allergy status
CPT/HCPCS: 99211

== ENCOUNTER 2021-10-29 10:11 | Day surgery (SDC) | payer MEDICARE, OTHER ==
[~2021-10-29 10:11] MED LIST: LACTATED RINGERS 1,000 ML IV SCH; LIDOCAINE 1% (10MG/ML) FOR IV START INTRADERMA PRN
[2021-10-29 10:30] VITALS: RESP 16; TEMP 96.7
[2021-10-29] MEDS ORDERED: MIDAZOLAM 2 MG/2 ML VIAL ONE (11:10)
[2021-10-29] MEDS ORDERED: IOPAMIDOL M200 10 ML VIAL ONE (11:10)
[2021-10-29] MEDS ORDERED: methylPREDNISolone ACETATE 40 MG/ML 1 ML VIAL ONE (11:10)
[2021-10-29] MEDS ORDERED: fentaNYL (PF) 50 MCG/ML 2 ML AMP ONE (11:10)
--- NOTE | 2021-10-29 11:23 | P.PCN ---
Date of Procedure: 10/29/21 Procedure(s) Performed: PREOPERATIVE DIAGNOSIS: 1- Thoracic Degenerative Disc Diseases POSTOPERATIVE DIAGNOSIS: Same as preop diagnosis. PROCEDURE 1. Thoracic epidural steroid injection under fluoroscopic guidance at the T11-12 level. (Fluoroscopy imaging was available in radiology department) 2. Thoracic epidurogram. ANESTHESIA: Local with 1% lidocaine 3 ml and , moderate sedation with intravenous Versed 2 mg ,and fentanyle 100 Mcg EBL: Minimal PROCEDURE INDICATION: The patient with low back pain and radiculitis symptoms unresponsive to conservative treatment. Fluoroscopy was used to optimize visualization of the needle placement and to maximize safety. PROCEDURE DESCRIPTION / TECHNIQUE: The patient was seen and identified in the preoperative area. Risks, benefits, complications including but not limited to infections ,bleeding ,allergic reaction to the medications ,nerve damage and not complete pain releife , and alternatives were discussed with the patient. The patient agreed to proceed with the procedure and signed the consent. IV was started, and vital signs were stable. Patient was taken to the OR and time out was completed. The patient was placed in the prone position . The Thoracic area was prepped and draped in the usual sterile fashion.ere closely monitored during the procedure. Conscious sedation was used during the procedure to decrease patients anxiety. Vital signs was monitered during the entire procedure. Using anterior-posterior fluoroscopy, the T11-12 interlaminar space was identified and the skin over this site was marked and then infiltrated with 1% lidocaine subcutaneously. Subsequently, a 20-gauge Tuohy epidural needle was inserted and advanced toward the epidural space using the ``Loss of resistance technique and guided by AP and lateral fluoroscopy. The correct needle position in the epidural space was verified with the injection of 2 mL of the water soluble contrast dye Isovue 200 contrast and observing an excellent epidurogram with the epidural spread of the dye, after negative aspiration for blood and CSF and in the absence of paresthesias. Again after negative aspiration, a 6 ml mixture containing 80 mg of Depo-medrol , and 2 ml of preservative free Normal Saline, and 2 ml of preservative free lidocaine 1% solution was injected and a washout of epidurogram was seen. Needle was withdrawn intact, skin was cleansed, and bandages were applied. COMPLICATIONS: None DISPOSITION / PLANS: The patient was placed in a supine position and transferred to the recovery area in a stable condition for observation. There was no evidence of lower extremity motor or sensory deficit after the procedure. Patient was discharged from the recovery room after meeting discharge criteria. Home discharge instructions were given to the patient by the staff. The patient was reexamined prior to discharge. The patient will schedule a follow up in the clinic in 2-4 weeks.
[2021-10-29] MEDS ORDERED: IV FLUID CONTINUATION 750 ML IV ONE (11:26)
[2021-10-29 11:43] VITALS: BP 111/75; PULSE 64
--- NOTE | 2021-10-29 11:56 | FL ---
EXAMINATION TYPE: FL guided pain mgmt statistic DATE OF EXAM: 10/29/2021 CLINICAL HISTORY: Back pain. TECHNIQUE: Fluoroscopy. COMPARISON: None. FINDINGS: Fluoroscopic guidance was provided during pain relief procedure performed by Dr. Jacobson . A total of 1 seconds of fluoroscopic time was utilized during the procedure and 1 spot images are acquired. Single image acquired shows needle localization at T12 level with contrast injection. IMPRESSION: As Above.
== END 2021-10-29 11:59 | disposition home or self-care (01) ==
LOC: ORPAIN 10:11
PROVIDERS: ATTEND Specialist
DX: M51.14 Intervertebral disc disorders with radiculopathy, thoracic region (principal)
CPT/HCPCS: 62321; J2250; J1030; J1040; J3010; Q9966

== ENCOUNTER → 2021-12-02 | Outpatient (CLI) | payer MEDICARE, OTHER ==
[2021-12-02 14:49] VITALS: BP 150/97; PULSE 59; RESP 18; TEMP 98.3
--- NOTE | 2021-12-02 15:02 | P.PAINPG ---
PQRS Measure Charge Sheet Comment: A 41 yr old male with a history of severe and chronic low back pain secondary to lumbar degenerative disc diseases and lumbar spondylosis with facet arthropathy presents today for TESI T11-T12. Pt states he experienced 60% relief x 4 days s/p procedure. Pain is localized in the L flank spine and states he's been experiencing this for "a few years." It is sharp/ shooting in character towards the L aspect of the lumbar spine with radiation of pain towards the L hip and LLE. Pain is provoked by twisting and bending. Pain is alleviated with PT which didn't help, heat with a heated rice sack, lidoderm patches, supine, home based stretching regimen. Interventional pain procedures completed include TESI T11-T12 Patient is currently on Lidoderm patches Patient denies any side effects of the medication(s), denies excessive drowsiness or sleepiness, denies suicidal ideation and reports that the current pain medication is helping to control the pain and improve activities of daily living. Patient denies any motor or sensory deficits. Patient denies any fever or night sweats, denies any change in the bowel movements or urination. Physical Examination: -Constitutional: Cooperative. Not in acute distress . - Neurologic: Cranial nerve II to XII intact. No focal neurological deficits. - Psychatric: Alert & oriented x 3. Matching mood & appropriate affect. Judgment and insight intact. - Musculoskeletal: Cervical spine: Muscle bulk/ tone/ strength in the bilateral upper extremities normal Vertebral body tenderness to palpation over Spurling test positive Distraction test positive Facet loading test positive Thoracic spine Muscle bulk / tone/ strength in the bilateral paraspinal muscles normal Vertebral body tender to palpation Facet loading test positive Lumbar spine: Motor bulk/ tone/ strength lower extremities , thigh and legs : 5/5 Deep tendon reflexes : Normal Knee Jerk. Normal Ankle Jerk . Vertebral body tenderness to palpation over L2, L3, L4 Lumbar Facet Loading Test positive Straight Leg Raise: positive at 30 degrees right side/ left side Gaenslen's Test positive Sacral spine : Severe tenderness over the Sacroiliac joint: right side / left side Range of motion: Flexion of the lumbar spine <60 degrees Range of motion: Extension of the lumbar spine <20 degrees Gaenslen's Test positive Anjum's Test positive Karely test: positive right side / left side Thigh Thrust Test Sacral Thrust Test Assessment and plan: Chronic low back pain secondary to lumbar degenerative disc disease , cesar mbar spondylosis with facet arthropathy without myelopathy Recommendation of facet block of the medial branches L L2-L3, L3-L4. May need a series of injections, up until RFA, for optimal pain relief. Risks, benefits of procedure discussed and pt verbalized understanding. Denies anticoagulant use or medical history of diabetes. All patient questions answered MAPS reviewed and it was appropriate. I have spent less than 30 minutes on patient care today. Dr Jacobson was available by phone for the evaluation of this patient. The time was used to review the medical records including relevant urine studies and Prescription history (MAPs), review of the available imaging, evaluation and examination of the patient, coordination of care with the medical staff and if applicable referring physicians, as well as creation of the medical record PQRS Narrative: Smoking Status Current every day smoker Hx Alcohol Use (MH) No Home Medications: Ambulatory Orders Ibuprofen [Motrin] 800 mg PO TID PRN 05/15/16 Omeprazole 20 mg PO BID PRN 05/15/16 Albuterol Inhaler [Ventolin Hfa Inhaler] 2 puff INHALATION RT-Q6H PRN 07/21/17 Montelukast [Singulair] 10 mg PO DAILY PRN 07/21/17 Controlled Substance Measures - Controlled Substance Measures Is patient prescribed a controlled substance at discharge?: No
== END ==
LOC: PNWHC3 14:30
PROVIDERS: ATTEND Specialist
DX: M51.36 Other intervertebral disc degeneration, lumbar region (principal); M47.816 Spondylosis without myelopathy or radiculopathy, lumbar region; F17.200 Nicotine dependence, unspecified, uncomplicated; G89.29 Other chronic pain; Z91.041 Radiographic dye allergy status
CPT/HCPCS: 99211

== ENCOUNTER → 2022-01-05 | Day surgery (SDC) | payer MEDICARE, OTHER ==
[~2022-01-05] MED LIST changes: +IV FLUID CONTINUATION 1,000 ML IV ONE; -LIDOCAINE 1% (10MG/ML) FOR IV START INTRADERMA PRN; +MIDAZOLAM 2 MG/2 ML VIAL ONE; +ROPIVACAINE 5MG/ML 20ML VIAL ONE
[2022-01-05 12:13] VITALS: TEMP 96.8
--- NOTE | 2022-01-05 12:59 | P.PCN ---
Date of Procedure: 01/05/22 Procedure(s) Performed: Left side lumbar facet block L2 3 L3 4 Description of Procedure: Procedure: Left L2-3, L3-L4 Diagnosis: Lumbar spondylosis without myelopathy ANESTHESIA: Medication Administered by: Nurse Sedation Type: Moderate sedation Sedation Supervision start time: 1250 Sedation Supervision end time: 1258 Imaging: Fluoroscopy was used, images where saved to the medical record The patient was seen and examined in the [facility]. Procedure risks and benefits were fully reviewed with the patient. The patient understands this is a diagnostic if local only is used, as will be the case today. The goal of the procedure is to inject medication onto the medial branch or small nerves that innervate the facet joints. In this way, we can hopefully identify which of these joints, if any, may be contributing to their pain. Informed consent for procedure was obtained. The patient was taken into the office fluoroscopy procedure room and placed prone on the table. A pillow was placed under the abdomen to reduce lumbar lordosis. Vital signs were closely monitored during the procedure. The skin over the area was prepped with Betadine X 3 and draped in usual sterile manner. Sterile technique was observed throughout procedure. Under biplanar fluoroscopic guidance, the target injection area of the L2, L3, L4 Sacral Ala were targeted. A 25 gauge 31/2 inch spinal needle was then placed at the most medial and superior aspect of the transverse process near the "eye of the Roberto dog". Aspiration for blood was negative. 1 cc of 0.5% Ropivacaine was injected into the targeted areas separately. [place] were withdrawn intact. No complications were noted during the procedure. The patient tolerated the procedure well. The patient was placed in supine position and transferred to the recovery area for observation and remained stable until discharged home. Home discharge instructions were given to the patient by the staff. The patient will schedule a follow up as directed. I dis cussed with the patient detailed this is a diagnostic testing should follow-up after having a pain diary.
[2022-01-05 13:28] VITALS: BP 138/90; PULSE 55; RESP 18
--- NOTE | 2022-01-05 13:53 | FL ---
Fluoroscopy History: LUM FACET BLOCK lesi in pain services fl time 7 secs
== END ==
LOC: ORPAIN 11:56
PROVIDERS: ATTEND Hospitalist
DX: M47.816 Spondylosis without myelopathy or radiculopathy, lumbar region (principal)
CPT/HCPCS: 64493; 64494; J2250; J2795

== ENCOUNTER 2022-02-23 11:28 | Day surgery (SDC) | payer MEDICARE, OTHER ==
[2022-02-23 11:47] VITALS: RESP 16; TEMP 97.4
[2022-02-23] MEDS ORDERED: LIDOCAINE 1% (10MG/ML) FOR IV START INTRADERMA PRN (11:48)
[2022-02-23] MEDS: LACTATED RINGERS 1,000 ML IV SCH ×2 (11:51→12:40)
[2022-02-23] MEDS ORDERED: MIDAZOLAM 2 MG/2 ML VIAL ONE (12:42)
[2022-02-23] MEDS ORDERED: ROPIVACAINE 5 MG/ML 20 ML AMPULE ONE (12:42)
[2022-02-23] MEDS ORDERED: fentaNYL (PF) 50 MCG/ML 2 ML AMP ONE (12:42)
[2022-02-23] MEDS ORDERED: methylPREDNISolone ACETATE 40 MG/ML 1 ML VIAL ONE (12:42)
--- NOTE | 2022-02-23 12:59 | P.PCN ---
Date of Procedure: 02/23/22 Procedure(s) Performed: PREOPERATIVE DIAGNOSIS : 1- Lumbar spondylosis with Facet Arthropathy without myelopathy . 2- Lumber degenerative disc disease POSTOPERATIVE DIAGNOSIS: 1- Lumbar spondylosis with Facet Arthropathy without myelopathy . 2- Lumber degenerative disc disease PROCEDURE: Diagnostic Left L1 , L2 , and L3 medial branch block under fluoroscopy guidance(fluoroscopy images available in the radiology Department ) ( To target the facet joint between left L2-3 , and L3-4 )# 2nd ANESTHESIA:moderate sedation with intravenous Versed 2 mg and Fentanyl 50 mcg. Sedation the start time 12 43, sedation end time 1253 EBL: Minimal COMPLICATION: None PROCEDURE INDICATION: Chronic low back pain secondary to Facet arthropathy unresponsive to conservative treatment. PROCEDURE DESCRIPTION: the patient was seen and identified in the preop holding area , risks and benefits and possible complications of the procedure and alternative were discussed with the patient, and the patient agreed to proceed with the procedure and signed the consent and vital signs monitored during the procedure and fluoroscopy was used to maximize the benefit and accuracy of the needle placement, and sedation was given to decrease patient anxiety, patient was taken to the procedure room and placed in prone position vital signs monitored in the back prepped with chlorhexidine X3 then under strict sterile technique using a right oblique fluoroscopy ,the junction of the transverse process and the superior articulating process of the left L1 , L2 , and L3 vertebra which corresponding to the fluoroscopy image of the eye of the Roberto dog on the block side for the medial branches and subsequently , after local infiltration of skin and subcu tissuies with Ropivacaine 0.5 % , one mL at each level ,then 22-gauge Quincke-type needles , 3 needle was used , each one of them placed at the junction of the base of the transverse process and the superior articular process at the appropriate level, and the needle was advanced until the periosteum contacted, needle placement confirmed with AP oblique and lateral view and after appropriate needle placement confirmed, and after negative aspiration for heme and CSF and there was no paresthesia 1-1/2 mL of Ropivacaine 0.5% mixed with 40 mg Depo-Medrol , then half mL injected at each level after negative aspiration the needle removed intact. At the end of the procedure and the needles removed and a bandage applied after the skin was cleaned the cleaning solution patient taken to recovery room in stable condition and monitors in the recovery room for 20-30 minutes and discharged home in stable condition after discharge criteria met and patient will follow up with the pain clinic in 2-4 weeks
[2022-02-23 13:12] VITALS: BP 143/90; PULSE 55
--- NOTE | 2022-02-23 13:16 | FL ---
Fluoroscopy History: LT LUM FACET BLOCK lt lumbar facet block 6 sec fl time used
== END 2022-02-23 13:30 | disposition home or self-care (01) ==
LOC: ORPAIN 11:28
PROVIDERS: ATTEND Specialist
DX: M51.36 Other intervertebral disc degeneration, lumbar region (principal); M47.816 Spondylosis without myelopathy or radiculopathy, lumbar region; G89.29 Other chronic pain
CPT/HCPCS: 64493; 64494; 99152; J2250; J1030; J3010; J2795

== ENCOUNTER → 2022-03-11 | Outpatient (CLI) | payer MEDICARE, OTHER ==
[2022-03-11 13:14] VITALS: BP 148/84; PULSE 57; RESP 18; TEMP 98.6
--- NOTE | 2022-03-11 14:59 | P.PAINPG ---
PQRS Measure Charge Sheet Comment: A 41 yr old male with a history of severe and chronic low back pain secondary to lumbar degenerative disc diseases and lumbar spondylosis with facet arthropathy without myelopathy presents today for evaluation s/p L MBB L2-L3, L3-L4 #2. Pt states he experienced 80% pain relief x 4 days s/p procedure. Pain level is currently at 4/10 in intensity, intermittent, localized in the lower L lumbar spine, sharp in character w shooting towards his L hip. Pain is provoked as high as 9/10 in intensity by bending or standing for periods of 30 min or more. Pain is alleviated with PT x 4 wks in 2019, home guided exercises, heat, ice sometimes, medications (Ibuprofen), +CBD edibles, topicals, repositioning and rest. Interventional pain procedures completed include L L2-3, L3-4 MBB x2. Patient is currently on Ibuprofen Patient denies any side effects of the medication(s), denies excessive drowsiness or sleepiness, denies suicidal ideation and reports that the current pain medication is helping to control the pain and improve activities of daily living. Patient denies any motor or sensory deficits. Patient denies any fever or night sweats, denies any change in the bowel movements or urination. Physical Examination: -Constitutional: Cooperative. Not in acute distress . - Neurologic: Cranial nerve II to XII intact. No focal neurological deficits. - Psychatric: Alert & oriented x 3. Matching mood & appropriate affect. Judgment and insight intact. - Musculoskeletal: Cervical spine: Muscle bulk/ tone/ strength in the bilateral upper extremities normal Vertebral body tenderness to palpation over Spurling test positive Distraction test positive Facet loading test positive Thoracic spine Muscle bulk / tone/ strength in the bilateral paraspinal muscles normal Vertebral body tender to palpation over Facet loading test positive Lumbar spine: Motor bulk/ tone/ strength lower extremities , thigh and legs : 5/5 Deep tendon reflexes : Normal Knee Jerk. Normal Ankle Jerk . Vertebral body tenderness to palpation over Lumbar Facet Loading Test positive w L lateral felxion and palpation over L L4-5, L5-S1 Straight Leg Raise: positive at 30 degrees right side/ left side Gaenslen's Test positive Sacral spine : Severe tenderness over the Sacroiliac joint: right side / left side Range of motion: Flexion of the lumbar spine <60 degrees Range of motion: Extension of the lumbar spine <20 degrees Gaenslen's Test positive Anjum's Test positive Karely test: positive right side / left side Thigh Thrust Test Sacral Thrust Test Assessment and plan: Chronic low back pain secondary to lumbar degenerative disc disease , lumbar spondylosis with facet arthropathy without myelopathy Recommendation of L RFA L4-L5, L5-S1. Pt exhibited sufficient and satisfactory pain relief w prior MBB procedures. Risks, benefits of procedure discussed and pt verbalized understanding.Admits to anticoagulant use or medical history of diabetes. Protocol for discontinuation/ continuation of medications albaro procedure discussed. All patient questions answered I have spent less than 30 minutes on patient care today. Dr Jacobson was available by phone for the evaluation of this patient. The time was used to review the medical records including relevant urine studies and Prescription history (MAPs), review of the available imaging, evaluation and examination of the patient, coordination of care with the medical staff and if applicable referring physicians, as well as creation of the medical record PQRS Narrative: Smoking Status Current every day smoker Hx Alcohol Use (MH) No Home Medications: Ambulatory Orders Ibuprofen [Motrin] 800 mg PO TID PRN 05/15/16 Omeprazole 20 mg PO BID PRN 05/15/16 Albuterol Inhaler [Ventolin Hfa Inhaler] 2 puff INHALATION RT-Q6H PRN 07/21/17 Montelukast [Singulair] 10 mg PO DAILY PRN 07/21/17 Controlled Substance Measures - Controlled Substance Measures Is patient prescribed a controlled substance at discharge?: No
== END | disposition home or self-care (01) ==
LOC: PNWHC3 12:50
PROVIDERS: ATTEND Specialist
DX: M47.896 Other spondylosis, lumbar region (principal); M51.36 Other intervertebral disc degeneration, lumbar region
CPT/HCPCS: 99211

== ENCOUNTER 2022-04-09 10:49 | Day surgery (SDC) | payer MEDICARE, OTHER ==
[~2022-04-09 10:49] MED LIST changes: -IV FLUID CONTINUATION 1,000 ML IV ONE; -LACTATED RINGERS 1,000 ML IV SCH; +LIDOCAINE 1% (10MG/ML) FOR IV START INTRADERMA PRN; -MIDAZOLAM 2 MG/2 ML VIAL ONE; -ROPIVACAINE 5MG/ML 20ML VIAL ONE
[2022-04-09 11:18] VITALS: RESP 16; TEMP 97
[2022-04-09] MEDS: LACTATED RINGERS 1,000 ML IV SCH ×2 (11:20→11:41)
[2022-04-09] MEDS ORDERED: methylPREDNISolone ACETATE 40 MG/ML 1 ML VIAL ONE (11:43)
[2022-04-09] MEDS ORDERED: ROPIVACAINE 5 MG/ML 20 ML AMPULE ONE (11:43)
[2022-04-09] MEDS ORDERED: fentaNYL (PF) 50 MCG/ML 2 ML AMP ONE (11:44)
[2022-04-09] MEDS ORDERED: MIDAZOLAM 2 MG/2 ML VIAL ONE (11:44)
--- NOTE | 2022-04-09 12:08 | P.PCN ---
Date of Procedure: 04/09/22 Procedure(s) Performed: PREOPERATIVE DIAGNOSIS: 1-Lumbar Spondylosis with Facet Arthropathy without myelopathy. POSTOPERATIVE DIAGNOSIS: 1- Lumbar Spondylosis with Facet Arthropathy without myelopathy. PROCEDURES : Left Radiofrequency thermocoagulation, L2-3 , L3-4 facet joint, with fluoroscopic guidance (fluoroscopy images available in the radiology department) ANESTHESIA: Monitored anesthesia care as per anesthesia department . EBL: Minimal PROCEDURE INDICATION: The patient with low back pain secondary to lumbar facet arthropathy who had more than 50% relief of her pain with previous diagnostic lumbar medial branch block with bupivacaine. PROCEDURE DESCRIPTION / TECHNIQUE: The patient was seen and identified in the preoperative area. Risks, benefits, complications, including but not limited to risk of infection ,bleeding , allergic reactions to the medications and no complete pain releife , and alternatives were discussed with the patient, the patient agreed to proceed with the procedure and signed the consent. IV was started. Vital signs remained stable throughout the procedure. Patient was taken to the OR and time out was completed. The patient was placed in the prone position on the procedure table. The lumber area was prepped and draped in the usual sterile fashion. . Vital signs were closely monitored during the procedure .IV sedation was used during the procedure to decrease patients anxiety. Using AP and then oblique fluoroscopy, the ``eye of the Roberto dog corresponding to the connection between the superior and transverse articular processes of left L2 , L3, L4, were identified, marked, and localized with 1% lidocaine. Subsequently, a 18 [id number] radiofrequency cannula with a 10-mm active tip was advanced guided by fluoroscopy to each of the``eyes of the Roberto dog at left L2 L3, L4. Each site then underwent sensory testing at 50 Hz and 0 to 1 volt and motor testing at 2.5 Hz and 0 to 3 volt with local stimulation, but no radicular symptoms down the legs. Thereafter each sites underwent radiofrequency thermocoagulation at 80 degrees celsius for 90 seconds after injecting 0.5 ml of PF Ropivacaine 1ml, then after the thermocoagulation done , 1 ml of the block solution containing Depo-Medrol 40 mg and 3 ml of Ropivacaine 0.5% was injected at the left L2 , L3 , L4 , levels after negative aspiration of CSF and blood and with no paresthesias. Cannulas were retracted while injecting lidocaine 1% until the needle is out. . At the end of the procedure, the skin was cleansed and bandages were applied. COMPLICATIONS: No acute complications. DISPOSITION / PLANS: The patient was placed in a supine position and transferred to the recovery area in a stable condition for observation and was discharged from the recovery room after meeting discharge criteria. Home discharge instructions given to the patient by the staff. The patient was reexamined prior to discharge. The patient will schedule a follow up in the clinic in 2-4 weeks.
[2022-04-09] MEDS ORDERED: IV FLUID CONTINUATION 1,000 ML IV ONE (12:09)
--- NOTE | 2022-04-09 12:17 | FL ---
Fluoroscopy History: Pain 23 SEC FLUORO
[2022-04-09 12:32] VITALS: BP 118/76; PULSE 56
== END 2022-04-09 12:59 | disposition home or self-care (01) ==
LOC: ORPAIN 10:49
PROVIDERS: ATTEND Specialist
DX: M47.816 Spondylosis without myelopathy or radiculopathy, lumbar region (principal); G89.29 Other chronic pain
CPT/HCPCS: 64635; 64636; J2250; J1030; J3010; J2795